=== PATIENT | male | born 2000 | race Caucasian/White ===

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

== ENCOUNTER 2019-03-27 20:28 | Emergency (ER) | payer OTHER ==
[~2019-03-27] VITALS: Ht 177.8 cm; Wt 102.1 kg
[2019-03-27 20:32] VITALS: BP 144/82
--- NOTE | 2019-03-27 20:34 | NUR ---
PT TAKEN TO CHAIR D
--- NOTE | 2019-03-27 20:58 | NUR ---
C/O WHITE BLISTERS TO BILAT ANKLES, FEET AND L THIGH X 2 WEEKS WITH SUDDEN ONSET. DENIES INJURY. BLISTERS NOTED WITH REDNESS AND PUSS. AGGRAVATED PAIN WITH WALKING. DENIES FEVER OR CHILLS. VSS. AA0X4. PMH: NONE NKA
[2019-03-27 21:44] VITALS: BP 135/80
== END 2019-03-27 21:44 | disposition home or self-care (01) ==
LOC: MED 20:28
DX: L03.115 Cellulitis of right lower limb (principal); L03.116 Cellulitis of left lower limb
CPT/HCPCS: 99283